=== PATIENT | male | born 2000 | race African-American/Black ===

== ENCOUNTER 2021-08-29 23:21 | Emergency (ER) | payer SELFPAY | END 2021-08-30 00:25 | disposition home or self-care (01) | LOC: CSHERS 23:21 | DX: S61.211A Laceration without foreign body of left index finger without damage to nail, initial encounter (principal); S93.402A Sprain of unspecified ligament of left ankle, initial encounter; W26.8XXA Contact with other sharp object(s), not elsewhere classified, initial encounter ==